=== PATIENT | male | born 1955 | race Caucasian/White ===

== ENCOUNTER 2016-11-27 07:09 | Day surgery (SDC) | payer OTHER ==
[~2016-11-27] VITALS: Ht 175.3 cm; Wt 81.7 kg
[2016-11-27 08:04] VITALS: Ht 175.3 cm; Wt 81.7 kg
[2016-11-27] MEDS ORDERED: METF500T4 PO (08:14)
[2016-11-27] MEDS ORDERED: GLYB5TAB3 PO (08:14)
[2016-11-27] MEDS ORDERED: ATOR40TA68 PO (08:14)
[2016-11-27 08:25] VITALS: BP 131/76; PULSE 69; RESP 16
[2016-11-27] MEDS ORDERED: FENTAnyl 50 MCG/ML VIAL ONE (09:54)
[2016-11-27] MEDS ORDERED: MIDAZOLAM 1 MG/ML 2 ML INJ ONE ×2 (09:54→09:55)
--- NOTE | 2016-11-27 10:14 | GILP ---
DATE OF PROCEDURE: 11/27/2016 NAME OF PROCEDURES: Colonoscopy, biopsy and polypectomy. SURGEON: Viola Torrez MD PREOPERATIVE DIAGNOSIS: Screening colonoscopy. POSTOPERATIVE DIAGNOSES: 1. Colonoscopy all the way to the cecum. 2. The patient had multiple polyps and one of them was removed with snare and electrocautery and ot hers with biopsy forceps. 3. Internal hemorrhoids. INDICATION FOR THE PROCEDURE: Mr. Fredi Reese is a 60-year-old male patient who was scheduled fo r screening colonoscopy. The procedure and possible complications are well explained to the patient, he understood and consen serena to the procedure. DESCRIPTION OF PROCEDURE: Under the influence of fentanyl and Versed, the colonoscope was carefully introduced in the rectum and under direct vision, it was advanced all the way to the cecum. FINDINGS: The patient had multiple colon polyps. One of the sigmoid colon polyps was removed using the snare and electrocautery. Other polyps were removed using biopsy forceps. The patient had inte rnal hemorrhoids. He tolerated the procedure very well and there was no complication from the procedure. At the end o f the procedure, he was awake with stable vital signs and he was discharged home to the care of his family. IMPRESSION: 1. Colonoscopy all the way to the cecum. 2. Multiple colon polyps. 3. One of the sigmoid polyps was removed using the snare and electrocautery and other polyps were r emoved using the biopsy forceps. 4. Internal hemorrhoids. PLAN: 1. Await histopathology report. 2. Because of the multiple polyps the patient had during this examination he will need followup col onoscopy in 3 years. Dictated By: VIOLA RAHMAN/MARIO Conf#: [id number] DID#: [id number] CC: VIOLA TORREZ MD;*EndCC*
[2016-11-27 10:21] VITALS: BP 109/75; PULSE 86; RESP 18
== END 2016-11-27 11:09 | disposition home or self-care (01) ==
LOC: GIL 07:09
PROVIDERS: ATTEND Internal Medicine Gastroenterology
DX: Z12.11 Encounter for screening for malignant neoplasm of colon (principal); D12.5 Benign neoplasm of sigmoid colon; K63.5 Polyp of colon; K64.8 Other hemorrhoids; E11.9 Type 2 diabetes mellitus without complications; E78.5 Hyperlipidemia, unspecified
CPT/HCPCS: 45380; 45385; J2250; J3010